=== PATIENT | female | born 1955 | race Caucasian/White ===

== ENCOUNTER 2017-08-09 08:55 | Day surgery (SDC) | payer BC ==
[2017-08-09] MEDS ORDERED: MIDAZOLAM 1 MG/ML 2 ML INJ ×2 (12:31)
[2017-08-09] MEDS ORDERED: FENTAnyl 50 MCG/ML VIAL (12:31)
== END 2017-08-09 13:06 | disposition home or self-care (01) ==
LOC: GIL 08:55
DX: Z12.11 Encounter for screening for malignant neoplasm of colon (principal); Z80.0 Family history of malignant neoplasm of digestive organs
CPT/HCPCS: 45378